=== PATIENT | male | born 1970 | race Caucasian/White ===

== ENCOUNTER 2024-11-02 14:30 | Outpatient (CLI) | payer OTHER, BC ==
[~2024-11-02 14:30] MED LIST: Iopamidol 300 61% 100 ML VIAL FS ONE
== END 2024-11-02 14:31 | disposition home or self-care (01) ==
LOC: CSHCT 14:30
PROVIDERS: ATTEND Family Medicine
DX: R10.10 Upper abdominal pain, unspecified (principal); R10.13 Epigastric pain; N20.0 Calculus of kidney; K42.9 Umbilical hernia without obstruction or gangrene; K44.9 Diaphragmatic hernia without obstruction or gangrene
CPT/HCPCS: 74170; Q9967